=== PATIENT | male | born 1985 | race Caucasian/White ===

== ENCOUNTER 2017-03-12 19:34 | Emergency (ER) | payer BC ==
[~2017-03-12] VITALS: Ht 190.5 cm; Wt 99.8 kg
[~2017-03-12 19:34] MED LIST: DEXL60CA3 PO; ROSU10TA PO
--- NOTE | 2017-03-12 20:12 | NUR ---
Patient discharged to home in stable conditon. Written and verbal after care instructions given. Patient verbalizes understanding of instructions.
[2017-03-12] MEDS ORDERED: TRAMADOL HCL 50 MG TABLET PO ONE (20:15)
[2017-03-12] MEDS ORDERED: TRAMADOL HCL 50 MG TABLET ONE (20:24)
== END 2017-03-12 20:13 | disposition home or self-care (01) ==
LOC: ER 19:35
DX: G89.29 Other chronic pain (principal); M54.5 Low back pain; E78.5 Hyperlipidemia, unspecified; K21.9 Gastro-esophageal reflux disease without esophagitis; F90.9 Attention-deficit hyperactivity disorder, unspecified type
CPT/HCPCS: A4663